=== PATIENT | male | born 2005 | race Caucasian/White ===

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

== ENCOUNTER 2025-03-26 17:43 | Emergency (ER) | payer OTHER ==
[2025-03-26 17:54] VITALS: BP 122/76; PULSE 73; RESP 20; TEMP 98.6; BMI 45.8
[2025-03-26] MEDS ORDERED: IBUPROFEN 600 MG TABLET (FP) PO ONE (18:34)
[2025-03-26] MEDS: IBUPROFEN 400 MG TABLET (FP) PO ONE (18:36)
== END 2025-03-26 19:30 | disposition home or self-care (01) ==
LOC: JERFT 17:43
DX: S60.415A Abrasion of left ring finger, initial encounter (principal); S60.417A Abrasion of left little finger, initial encounter; M25.462 Effusion, left knee; W10.8XXA Fall (on) (from) other stairs and steps, initial encounter
CPT/HCPCS: 73130-TC-LT-FY; 73562-TC-LT-FY; 99284-25